=== PATIENT | female | born 1985 | race Caucasian/White ===

== ENCOUNTER 2022-02-08 10:45 | Emergency (ER) | payer BC ==
[2022-02-08 12:10] LABS: CORONAVIRUS COVID-19 NAA NEGATIVE (NEGATIVE); INFLUENZA A NAA NEGATIVE (NEGATIVE); INFLUENZA B NAA NEGATIVE (NEGATIVE)
== END 2022-02-08 12:25 | disposition home or self-care (01) ==
LOC: MW.ED 10:45
DX: B34.9 Viral infection, unspecified (principal); Z20.822 Contact with and (suspected) exposure to COVID-19; Z79.899 Other long term (current) drug therapy
CPT/HCPCS: 0240U; 99283

== ENCOUNTER 2022-04-03 10:47 | Day surgery (SDC) | payer BC ==
[~2022-04-03 10:47] MED LIST: Lactated Ringers 1,000 ML IV SCH; Lidocaine 2% 5 ML SDV ONE; Sodium Chloride 0.9% 10 ML Syringe FLUSH PRN; Sodium Chloride 0.9% 2.5 ML Syringe FLUSH PRN; Sodium Chloride 0.9% 20 ML SDV IV PRN; fentaNYL 100 MCG/2 ML SDV ONE
[2022-04-03] MEDS ORDERED: propofoL 50 ML ONE (11:11)
[2022-04-03] MEDS ORDERED: Ondansetron 4 MG/2 ML SDV ONE (11:53)
[2022-04-03] MEDS ORDERED: Famotidine 20 MG/2 ML SDV ONE (11:59)
== END 2022-04-03 13:25 | disposition home or self-care (01) ==
LOC: MW.SDS 10:47
PROVIDERS: ATTEND Surgery
DX: K52.9 Noninfective gastroenteritis and colitis, unspecified (principal); D50.9 Iron deficiency anemia, unspecified; K27.9 Peptic ulcer, site unspecified, unspecified as acute or chronic, without hemorrhage or perforation; F41.9 Anxiety disorder, unspecified; F32.A Depression, unspecified; K21.9 Gastro-esophageal reflux disease without esophagitis; E66.9 Obesity, unspecified; Z90.49 Acquired absence of other specified parts of digestive tract; Z98.890 Other specified postprocedural states; Z79.899 Other long term (current) drug therapy; Z68.38 Body mass index [BMI] 38.0-38.9, adult
CPT/HCPCS: 43239; 45380; 81025; J2405; J2704; J3010; J3490; J7120; 00813

== ENCOUNTER 2022-07-08 08:37 | Day surgery (SDC) | payer BC ==
[~2022-07-08 08:37] MED LIST changes: -Lidocaine 2% 5 ML SDV ONE; +Propofol 200 MG/20 ML SDV ONE; -fentaNYL 100 MCG/2 ML SDV ONE
== END 2022-07-08 11:55 | disposition home or self-care (01) ==
LOC: MW.SDS 08:37
PROVIDERS: ATTEND Surgery
DX: K52.9 Noninfective gastroenteritis and colitis, unspecified (principal); K21.9 Gastro-esophageal reflux disease without esophagitis; F32.A Depression, unspecified; E66.9 Obesity, unspecified; G43.909 Migraine, unspecified, not intractable, without status migrainosus; F41.9 Anxiety disorder, unspecified; Z87.19 Personal history of other diseases of the digestive system; Z79.899 Other long term (current) drug therapy; Z90.49 Acquired absence of other specified parts of digestive tract; Z98.890 Other specified postprocedural states; Z68.39 Body mass index [BMI] 39.0-39.9, adult
CPT/HCPCS: 43239; 81025; J2704; J7120; 00731

== ENCOUNTER 2022-08-18 16:57 | Emergency (ER) | payer BC ==
[2022-08-18] MEDS ORDERED: Sulfamethoxazole/Trimethoprim 800-160 MG Tab PO STA (20:21)
== END 2022-08-18 20:30 | disposition home or self-care (01) ==
LOC: MW.ED 16:57
DX: N75.0 Cyst of Bartholin's gland (principal); K21.9 Gastro-esophageal reflux disease without esophagitis; E66.9 Obesity, unspecified; Z68.39 Body mass index [BMI] 39.0-39.9, adult; Z79.899 Other long term (current) drug therapy
CPT/HCPCS: 99283; A9270

== ENCOUNTER 2022-11-02 15:28 | Emergency (ER) | payer OTHER, BC ==
[2022-11-02] MEDS ORDERED: Cyclobenzaprine 10 MG Tab PO ONE (17:30)
[2022-11-02] MEDS ORDERED: Ibuprofen 600 MG Tab PO ONE (17:30)
== END 2022-11-02 17:51 | disposition home or self-care (01) ==
LOC: MW.ED 15:28
DX: S49.91XA Unspecified injury of right shoulder and upper arm, initial encounter (principal); K21.9 Gastro-esophageal reflux disease without esophagitis; E66.9 Obesity, unspecified; Z68.38 Body mass index [BMI] 38.0-38.9, adult; Z79.899 Other long term (current) drug therapy; W50.0XXA Accidental hit or strike by another person, initial encounter; Y99.0 Civilian activity done for income or pay
CPT/HCPCS: 73030; 99283; A9270

== ENCOUNTER 2022-12-01 06:38 | Day surgery (SDC) | payer BC, OTHER ==
[~2022-12-01 06:38] MED LIST changes: -Lactated Ringers 1,000 ML IV SCH; -Propofol 200 MG/20 ML SDV ONE; -Sodium Chloride 0.9% 10 ML Syringe FLUSH PRN; -Sodium Chloride 0.9% 2.5 ML Syringe FLUSH PRN; -Sodium Chloride 0.9% 20 ML SDV IV PRN; +ceFAZolin 2 GM in Premix Bag 1 BAG IV ONE
[2022-12-01] MEDS ORDERED: Metoclopramide 10 MG/2 ML SDV IVPUSH PRN (06:51)
[2022-12-01] MEDS ORDERED: Albuterol 0.083% 2.5 MG/3 ML Neb Soln NEB PRN (06:51)
[2022-12-01] MEDS ORDERED: Morphine 2 MG/ML SYRINGE IVPUSH PRN (06:51)
[2022-12-01] MEDS ORDERED: Ondansetron 4 MG/2 ML SDV IVPUSH PRN ×3 (06:51→13:23)
[2022-12-01] MEDS ORDERED: Naloxone 0.4 MG/ML SDV IVPUSH PRN (06:51)
[2022-12-01] MEDS: Lactated Ringers 1,000 ML IV SCH ×2 (07:05→17:07)
[2022-12-01] MEDS ORDERED: Propofol 200 MG/20 ML SDV ONE ×2 (07:26→09:42)
[2022-12-01] MEDS ORDERED: Lidocaine 2% 5 ML SDV ONE (07:26)
[2022-12-01] MEDS ORDERED: Dexamethasone 4 MG/ML 5 ML MDV ONE (07:26)
[2022-12-01] MEDS ORDERED: fentaNYL 250 MCG/5 ML SDV ONE (07:26)
[2022-12-01] MEDS ORDERED: Rocuronium Bromide 50 MG/5 ML Syringe ONE ×2 (07:26→09:07)
[2022-12-01] MEDS ORDERED: Dexmedetomidine 200 MCG/2 ML SDV ONE (07:26)
[2022-12-01] MEDS ORDERED: Sugammadex Sodium 200 MG/2 ML VIAL ONE (07:26)
[2022-12-01] MEDS ORDERED: Water For Injection, Sterile 40 ML ONE (07:26)
[2022-12-01] MEDS ORDERED: Ondansetron 4 MG/2 ML SDV ONE (07:26)
[2022-12-01] MEDS ORDERED: ceFAZolin 2 GM Vial ONE (07:26)
[2022-12-01] MEDS ORDERED: Methylene Blue 50 MG/10 ML Ampule ONE (07:29)
[2022-12-01] MEDS ORDERED: Bupivacaine 0.25% 30 ML SDV ONE (07:29)
[2022-12-01] MEDS ORDERED: Ropivacaine 0.5% 5 MG/ML 30 ML SDV ONE (07:45)
[2022-12-01] MEDS ORDERED: Bupivacaine 25%/EPINEPHrine/PF 30 ML ONE (07:45)
[2022-12-01 07:55] LABS: CARBON DIOXIDE,CO2 21.3 mmol/L (21.0-32.0); POTASSIUM,K 3.7 mmol/L (3.5-5.1)
[2022-12-01] MEDS ORDERED: fentaNYL 100 MCG/2 ML SDV ONE (09:46)
[2022-12-01] MEDS ORDERED: Ketorolac 30 MG/ML SDV ONE (09:53)
[2022-12-01] MEDS ORDERED: Phenylephrine HCl 0.5 MG/5 ML AMP ONE (10:56)
[2022-12-01] MEDS ORDERED: Acetaminophen/oxyCODONE 325-5 MG Tab PO PRN ×3 (11:01→13:23)
[2022-12-01] MEDS ORDERED: Promethazine 25 MG/ML SDV IM PRN ×2 (11:01→13:23)
[2022-12-01] MEDS ORDERED: Morphine 4 MG/ML Syringe IVPUSH PRN ×2 (11:01→13:23)
[2022-12-01] MEDS: HYDROmorphone 1 MG/ML Syringe IVPUSH PRN ×2 (11:17→11:38)
[2022-12-01] MEDS: fentaNYL 50 MCG/ML SDV IVPUSH PRN ×2 (11:25→11:58)
[2022-12-01] MEDS ORDERED: Ketorolac 30 MG/ML SDV IVPUSH PRN ×2 (13:23→16:00)
[2022-12-01] MEDS: Acetaminophen/oxyCODONE 325-5 MG Tab PO PRN ×2 (14:16→19:32)
[2022-12-01] MEDS ORDERED: Cyclobenzaprine 5 MG Tab PO PRN (16:15)
[2022-12-02] MEDS: Lactated Ringers 1,000 ML IV SCH (02:42)
[2022-12-02 06:48] LABS: CARBON DIOXIDE,CO2 21.7 mmol/L (21.0-32.0); POTASSIUM,K 3.3 mmol/L (3.5-5.1)
[2022-12-02] MEDS: Acetaminophen/oxyCODONE 325-5 MG Tab PO PRN (08:57)
== END 2022-12-02 10:55 | disposition home or self-care (01) ==
LOC: MW.SDS 06:38 → MW.MS 09:30 → MW.SDS 12-02 10:55
PROVIDERS: ATTEND Obstetrics & Gynecology
DX: D25.2 Subserosal leiomyoma of uterus (principal); N80.03 Adenomyosis of the uterus; N80.9 Endometriosis, unspecified; F41.9 Anxiety disorder, unspecified; F32.A Depression, unspecified; G43.909 Migraine, unspecified, not intractable, without status migrainosus; K21.9 Gastro-esophageal reflux disease without esophagitis; E66.9 Obesity, unspecified; E61.1 Iron deficiency; Z68.37 Body mass index [BMI] 37.0-37.9, adult; Z98.890 Other specified postprocedural states; Z79.899 Other long term (current) drug therapy; Z20.822 Contact with and (suspected) exposure to COVID-19
CPT/HCPCS: 36415; 80053; 85025; A9270-GY; J0131; J0690; J1100; J1170; J1885; J2370; J2405; J2704; J2795; J3010; J3490; J7030; J7120; U0002

== ENCOUNTER 2023-09-16 14:31 | Emergency (ER) | payer SELFPAY ==
[2023-09-16 16:30] LABS: BASOPHILS ABSOLUTE AUTO 0.02 K/uL (0.00-0.20); BASOPHILS PERCENT AUTO 0.3 % (0.0-1.0); EOSINOPHILS ABSOLUTE AUTO 0.24 K/uL (0.00-0.45); EOSINOPHILS PERCENT AUTO 3.1 % (0.0-6.0); HEMATOCRIT 39.1 % (37.0-47.0); HEMOGLOBIN 13.5 g/dL (12.0-16.0); IMMATURE GRAN ABSOLUTE AUTO 0.02 K/uL (0.00-0.05); IMMATURE GRAN PERCENT AUTO 0.3 % (0.0-0.4); LYMPHOCYTES ABSOLUTE AUTO 2.44 K/uL (1.00-4.80); LYMPHOCYTES PERCENT AUTO 31.7 % (24.0-44.0); MEAN CORPUSCULAR HEMOGLOBIN 31.3 pg (28.0-32.0); MEAN CORPUSCULAR HGB CONC 34.5 g/dL (32.0-36.0); MEAN CORPUSCULAR VOLUME 90.7 fL (83.0-99.0); MEAN PLATELET VOLUME 10.6 fL (9.4-12.3); MONOCYTES ABSOLUTE AUTO 0.61 K/uL (0.00-0.80); MONOCYTES PERCENT AUTO 7.9 % (0.0-8.0); NEUTROPHILS ABSOLUTE AUTO 4.37 K/uL (1.80-7.70); NEUTROPHILS PERCENT AUTO 56.7 % (41.0-71.0); PLATELET COUNT,PLT 224 K/uL (150-400); RED BLOOD CELL COUNT 4.31 M/uL (4.10-5.30)
[2023-09-16 16:48] LABS: INR 0.99 (0.86-1.11)
[2023-09-16 16:57] LABS: A/G RATIO 0.9 (0.9-1.6); ALBUMIN 3.2 g/dL (3.4-5.0); BILIRUBIN TOTAL 0.4 mg/dL (0.2-1.0); CALCIUM 8.6 mg/dL (8.5-10.1); CARBON DIOXIDE,CO2 26.1 mmol/L (21.0-32.0); CREATININE 0.7 mg/dL (0.6-1.0); EST CRCL DRUG DOSING (CG) 94.1 mL/min; POTASSIUM,K 3.8 mmol/L (3.5-5.1); PROTEIN TOTAL,TP 6.8 g/dL (6.4-8.2)
[2023-09-16 17:08] LABS: BILIRUBIN,URINE NEGATIVE (NEGATIVE); COLOR,URINE YELLOW; GLUCOSE,URINE NEGATIVE (NEGATIVE); KETONES,URINE NEGATIVE (NEGATIVE); LEUKOCYTE ESTERASE,URINE NEGATIVE (NEGATIVE); NITRITE,URINE NEGATIVE (NEGATIVE); OCCULT BLOOD,URINE SMALL (NEGATIVE); PROTEIN,URINE NEGATIVE (NEGATIVE); UROBILINOGEN,URINE 0.2 EU/dL (<2.0)
[2023-09-16 17:20] LABS: APPEARANCE,URINE SLT CLOUDY
[2023-09-16 17:30] LABS: BACTERIA,URINE FEW (NEGATIVE); EPITHELIAL CELLS,URINE MODERATE (NONE-FEW); RBC,URINE 0-3 (0-2/HPF)
== END 2023-09-16 17:43 | disposition home or self-care (01) ==
LOC: MW.ED 14:31
DX: N93.9 Abnormal uterine and vaginal bleeding, unspecified (principal); R10.2 Pelvic and perineal pain; E66.9 Obesity, unspecified; Z90.49 Acquired absence of other specified parts of digestive tract; Z79.899 Other long term (current) drug therapy; Z3A.39 39 weeks gestation of pregnancy
CPT/HCPCS: 36415; 76830; 76830-26; 80053; 81001; 81025; 85025; 85610; 99282; 99284

== ENCOUNTER 2024-02-18 07:54 | Emergency (ER) | payer BC ==
[2024-02-18 08:37] LABS: BASOPHILS ABSOLUTE AUTO 0.04 K/uL (0.00-0.20); BASOPHILS PERCENT AUTO 0.5 % (0.0-1.0); EOSINOPHILS ABSOLUTE AUTO 0.15 K/uL (0.00-0.45); EOSINOPHILS PERCENT AUTO 1.8 % (0.0-6.0); HEMATOCRIT 41.4 % (37.0-47.0); HEMOGLOBIN 14.5 g/dL (12.0-16.0); IMMATURE GRAN ABSOLUTE AUTO 0.02 K/uL (0.00-0.05); IMMATURE GRAN PERCENT AUTO 0.2 % (0.0-0.4); LYMPHOCYTES ABSOLUTE AUTO 2.03 K/uL (1.00-4.80); LYMPHOCYTES PERCENT AUTO 23.7 % (24.0-44.0); MEAN CORPUSCULAR HEMOGLOBIN 31.3 pg (28.0-32.0); MEAN CORPUSCULAR VOLUME 89.2 fL (83.0-99.0); MEAN PLATELET VOLUME 11.1 fL (9.4-12.3); MONOCYTES ABSOLUTE AUTO 0.49 K/uL (0.00-0.80); MONOCYTES PERCENT AUTO 5.7 % (0.0-8.0); NEUTROPHILS ABSOLUTE AUTO 5.84 K/uL (1.80-7.70); NEUTROPHILS PERCENT AUTO 68.1 % (41.0-71.0); PLATELET COUNT,PLT 249 K/uL (150-400); RED BLOOD CELL COUNT 4.64 M/uL (4.10-5.30); WHITE BLOOD CELL COUNT,WBC 8.57 K/uL (3.9-11.3)
[2024-02-18 08:40] LABS: APPEARANCE,URINE CLEAR; BILIRUBIN,URINE NEGATIVE (NEGATIVE); COLOR,URINE YELLOW; GLUCOSE,URINE NEGATIVE (NEGATIVE); KETONES,URINE NEGATIVE (NEGATIVE); LEUKOCYTE ESTERASE,URINE NEGATIVE (NEGATIVE); NITRITE,URINE NEGATIVE (NEGATIVE); OCCULT BLOOD,URINE SMALL (NEGATIVE); PH,URINE 5.5 (5.0-8.0); PROTEIN,URINE NEGATIVE (NEGATIVE); UROBILINOGEN,URINE 0.2 EU/dL (<2.0)
[2024-02-18] MEDS: Sodium Chloride 0.9% 10 ML Syringe FLUSH PRN (08:46)
[2024-02-18] MEDS: Sodium Chloride 0.9% 2.5 ML Syringe FLUSH PRN (08:46)
[2024-02-18 08:47] LABS: A/G RATIO 0.8 (0.9-1.6); BILIRUBIN TOTAL 0.5 mg/dL (0.2-1.0); CALCIUM 8.5 mg/dL (8.5-10.1); CARBON DIOXIDE,CO2 24.6 mmol/L (21.0-32.0); CREATININE 0.8 mg/dL (0.6-1.0); EST CRCL DRUG DOSING (CG) 81.53 mL/min; POTASSIUM,K 4.5 mmol/L (3.5-5.1)
[2024-02-18 09:12] LABS: BACTERIA,URINE 2+ (NEGATIVE); EPITHELIAL CELLS,URINE FEW (NONE-FEW); RBC,URINE 0-1 (0-2/HPF); WBC,URINE 0-1 (0-5/HPF)
== END 2024-02-18 10:12 | disposition home or self-care (01) ==
LOC: MW.ED 07:54
DX: N12 Tubulo-interstitial nephritis, not specified as acute or chronic (principal); Z79.899 Other long term (current) drug therapy; Z90.710 Acquired absence of both cervix and uterus; Z90.49 Acquired absence of other specified parts of digestive tract
CPT/HCPCS: 36415; 76856; 80053; 81001; 81025; 83690; 85025; 87086; 99284; J3490; 99283